=== PATIENT | female | born 1990 | race Caucasian/White ===

== ENCOUNTER 2020-08-01 09:30 | Outpatient (REF) | payer OTHER, SELFPAY ==
[2020-08-02 08:10] LABS: HBsAGNum1 0.16 S/CO (0.00-0.99); HIV AB/AG Nonreactive (Nonreactive); HIV Num 1 0.09 S/CO (0.00-0.99); Hepatitis B Surface Antigen Negative (Negative); ~HepC Num1 0.25 S/CO (0.00-0.79); ~Hepatitis C Antibody Nonreactive (Nonreactive)
[2020-08-02 08:40] LABS: Syphilis Screen Nonreactive (Nonreactive)
[2020-08-02 09:33] LABS: CT PCR NOT DETECTED (Not Detect.); NG PCR NOT DETECTED (Not Detect.)
[2020-08-02 09:54] LABS: BV Int Neg Control Negative (Negative); BV Int Pos Control Positive (Positive)
== END 2020-08-01 09:31 | disposition home or self-care (01) ==
LOC: HO.LAB 09:30
PROVIDERS: PCP Internal Medicine; Referring Provider Internal Medicine; Visit Provider Advanced Practice Midwife
DX: Z01.419 Encounter for gynecological examination (general) (routine) without abnormal findings (principal); Z20.2 Contact with and (suspected) exposure to infections with a predominantly sexual mode of transmission; N83.8 Other noninflammatory disorders of ovary, fallopian tube and broad ligament; I73.00 Raynaud's syndrome without gangrene
CPT/HCPCS: 86780; 86803; 87340; 87389; 87480; 87491; 87510; 87591; 87660; 88142

== ENCOUNTER 2020-08-09 12:55 | Outpatient (REF) | payer OTHER, SELFPAY ==
--- NOTE | 2020-08-09 12:56 | US_ITS ---
EXAMINATION: ULTRASOUND PELVIS CLINICAL INFORMATION: Noninflammatory disorder of the ovary. COMPARISON: None TECHNIQUE: Transabdominal and transvaginal ultrasound of pelvis is performed. FINDINGS: The uterus is anteverted and anteflexed measuring 8.29 cm in length, 4.1 cm in AP and 6.6 cm in transverse dimension. The uterus is heterogeneous with small anechoic cystic areas adjacent to the endometrial canal likely small cyst. Endometrial thickness is 1.32 cm. Right ovary measures 9.29 x 1.68 x 3.15 cm and volume 11.89 mL. Left ovary measures 3.33 x 2.30 x 2.77 cm and volume 11.11 mL. There is no free fluid in the cul-de-sac. US/US transvaginal IMPRESSION: Slightly heterogenous uterus with anechoic cystic areas seen adjacent to the endometrial canal. Likely small cyst. There is no free fluid in the cul-de-sac.
--- NOTE | 2020-08-09 12:56 | US_ITS ---
EXAMINATION: ULTRASOUND PELVIS CLINICAL INFORMATION: Noninflammatory disorder of the ovary. COMPARISON: None TECHNIQUE: Transabdominal and transvaginal ultrasound of pelvis is performed. FINDINGS: The uterus is anteverted and anteflexed measuring 8.29 cm in length, 4.1 cm in AP and 6.6 cm in transverse dimension. The uterus is heterogeneous with small anechoic cystic areas adjacent to the endometrial canal likely small cyst. Endometrial thickness is 1.32 cm. Right ovary measures 9.29 x 1.68 x 3.15 cm and volume 11.89 mL. Left ovary measures 3.33 x 2.30 x 2.77 cm and volume 11.11 mL. There is no free fluid in the cul-de-sac. US/US pelvic complete IMPRESSION: Slightly heterogenous uterus with anechoic cystic areas seen adjacent to the endometrial canal. Likely small cyst. There is no free fluid in the cul-de-sac.
== END 2020-08-09 12:56 | disposition home or self-care (01) ==
LOC: HO.US 12:55
PROVIDERS: PCP Internal Medicine; Visit Provider Advanced Practice Midwife
DX: N83.8 Other noninflammatory disorders of ovary, fallopian tube and broad ligament (principal)
CPT/HCPCS: 76830; 76856

== ENCOUNTER 2020-08-21 13:15 | Outpatient (REF) | payer OTHER, SELFPAY ==
[2020-08-21 13:59] LABS: MANUAL DIFF FLAG NO
[2020-08-21 14:04] LABS: Basophils Percent Auto 0.5 % (0-2); Eosinophils Absolute Auto 0.4 X10*3/uL (0.0-0.4); Eosinophils Percent Auto 5.6 % (0-4); Imm Gran Abs Auto 0.03 X10*3/uL (0.00-0.03); Imm Gran Pct Auto 0.4 % (0.0-0.4); Lymphocytes Absolute Auto 2.3 X10*3/uL (1.2-4.9); Lymphocytes Percent Auto 31.1 % (20-40); Mean Corpuscular HGB Conc 33.3 g/dl (31.0-35.0); Mean Corpuscular Hemoglobin 27.5 pg (27.0-33.0); Mean Corpuscular Volume 82.5 fL (80-98); Mean Platelet Volume 9.5 fL (9.4-12.3); Monocytes Absolute Auto 0.6 X10*3/uL (0.1-1.2); Monocytes Percent Auto 7.4 % (2-11); Neutrophils Absolute Auto 4.1 X10*3/uL (2.0-8.3); Platelet Count 372 X10*3/uL (160-400); Red Blood Count 4.73 X10*6/uL (4.20-5.50); Red Cell Distribution Width 12.4 % (11.0-16.0); White Blood Count 7.5 X10*3/uL (4.8-10.8)
[2020-08-21 14:33] LABS: Alanine Aminotransferase 33 U/L (0-31); Albumin Level 4.5 g/dL (3.5-5.0); Alkaline Phosphatase 93 U/L (39-117); Anion Gap 13 (12-20); Aspartate Amino Transferase 34 U/L (5-31); Bilirubin Total 0.4 mg/dL (0.0-1.0); Blood Urea Nitrogen 10 mg/dL (9-16); Calcium 9.6 mg/dL (8.4-10.2); Carbon Dioxide 25 mmol/L (22-29); Chloride 103 mmol/L (96-108); Cholesterol 179 mg/dL; Estimated Glomerular Filt Rate > 60; Glucose Fasting 94 mg/dL (60-99); HDL Cholesterol 39 mg/dL; LDL Cholesterol Calculated 127 mg/dl; Potassium 4.5 mmol/l (3.3-5.1); Sodium 136 mmol/L (135-145); Total Protein 7.7 g/dL (6.5-8.0); Triglycerides 67 mg/dL
== END 2020-08-21 13:16 | disposition home or self-care (01) ==
LOC: HO.LAB 13:15
PROVIDERS: Visit Provider Internal Medicine
DX: Z00.00 Encounter for general adult medical examination without abnormal findings (principal); E11.9 Type 2 diabetes mellitus without complications
CPT/HCPCS: 36415; 80053; 80061; 85025

== ENCOUNTER → 2020-08-24 09:59 | Outpatient (BNVA) | payer OTHER, SELFPAY | PROVIDERS: Visit Provider Advanced Practice Midwife | DX: N94.6 Dysmenorrhea, unspecified (principal); N83.8 Other noninflammatory disorders of ovary, fallopian tube and broad ligament; Z72.0 Tobacco use | CPT/HCPCS: Q3014 ==

== ENCOUNTER 2020-09-29 02:03 | Emergency (ER) | payer OTHER, SELFPAY ==
[2020-09-29 02:19] VITALS: PULSE 87; RESP 12; TEMP 36.7; BMI 24.0
--- NOTE | 2020-09-29 02:25 | ED_ITS ---
HPI - Female Genitourinary General Chief complaint: Urogenital-Female Stated complaint: ?OVARY PAIN Time Seen by Provider: 09/29/20 02:09 Source: patient Mode of arrival: ambulatory History of Present Illness HPI Narrative: This is a 30-year-old female with worsening right lower quadrant and suprapubic pain over the past 4 days with associated chills and decrease in appetite but denies any urinary pain/burning/frequency, diarrhea and states that the pain does not radiate anywhere and felt as though it started on the left and then moved to the right. Of note, patient is status post appendectomy and conjunction with repair intussusception at 6 months of age. Related Data Home Medications Medication Instructions Recorded Confirmed omeprazole magnesium 20 mg 20 mg PO DAILY 08/09/20 08/09/20 capsule,delayed release Previous Rx's Medication Instructions Recorded metronidazole 500 mg tablet 500 mg PO BID 7 Days #14 tab 08/04/20 Allergies Allergy/AdvReac Type Severity Reaction Status Date / Time No Known Allergies Allergy Verified 08/24/20 10:00 Review of Systems Review of Systems: Pertinent positives and negatives as mentioned in the HPI and 10 point review systems is otherwise negative. [facility] Past Medical History Source: nursing notes reviewed Medical History Elevated C-reactive protein (CRP) Elevated LFTs Raynaud disease Raynaud disease Tobacco use Surgical History No history of previous surgery Family History Family History Maternal Grandmother Diabetes mellitus Stroke Maternal Grandfather Diabetes mellitus Paternal Grandmother Diabetes mellitus Paternal Grandfather Diabetes mellitus Stroke Colon cancer Father No problems noted. Mother No problems noted. Social History Social History Alcohol intake: never Smoking Status: Current every day smoker Tobacco Type: Cigarette Packs Per Day: 1 Use of substances other than those prescribed or required for medical reasons: No Advance Directives: No Physical Exam Vital Signs: Vital Signs: Last Vital Signs Temp 98.0 F 09/29/20 02:19 Pulse 71 09/29/20 04:55 Resp 20 09/29/20 04:55 BP 134/90 H 09/29/20 04:55 Pulse Ox 97 09/29/20 04:55 Body Mass Index 24.0 VITAL SIGNS: Reviewed. GENERAL: Well developed, well nourished, in no acute distress. NOSE: Nares patent bilateral OROPHARYNX: no oral lesions noted, posterior pharynx clear NECK: Supple, no adenopathy LUNGS: Normal breath sounds. No adventitious sounds or accessory muscle use. CARDIOVASCULAR: Regular rate and rhythm without noted murmurs, no JVD or lower extremity edema. ABDOMEN: Soft, tenderness without rebound in the right lower quadrant/suprapubic area, non-distended with bowel sounds. No rigidity. No guarding. No palpable masses or hernias noted MUSCULOSKELETAL: No tenderness, deformities, or effusions noted on gross inspection. EXTREMITIES: No cyanosis, clubbing or edema. SKIN: Inspection of the skin reveals no rashes NEUROLOGIC: Alert and oriented x 4. Course Course Course Narrative: This is a 30-year-old female with history and clinical presentation suggestive of renal colic, ovarian torsion, ectopic . All investigations reviewed and no evidence to suggest renal colic, ectopic p regnancy, ovarian torsion, ruptured cyst, UTI, or appendicitis. All results and findings were discussed with patient at bedside and she was encouraged to follow up with her primary care provider for further investigations to evaluate the possibility of endometriosis. MDM - Female Genitourinary Lab Data Result diagrams: 09/29/20 03:28 09/29/20 03:28 Labs: Lab Results 09/29/20 09/29/20 09/29/20 Range/Units 03:28 03:28 03:28 WBC 8.6 (4.8-10.8) X10*3/uL RBC 4.75 (4.20-5.50) X10*6/uL Hgb 13.1 (12.0-16.0) g/dl Hct 39.2 (37-47) % MCV 82.5 (80-98) fL MCH 27.6 (27.0-33.0) pg MCHC 33.4 (31.0-35.0) g/dl RDW 12.3 (11.0-16.0) % Plt Count 411 H (160-400) X10*3/uL MPV 8.9 L (9.4-12.3) fL Immature Gran % (Auto) 0.1 (0.0-0.4) % Neut % (Auto) 45.1 (45-73) % Lymph % (Auto) 40.5 H (20-40) % [place] % (Auto) 5.1 (2-11) % Eos % (Auto) 8.6 H (0-4) % Baso % (Auto) 0.6 (0-2) % Lymph # (Auto) 3.5 (1.2-4.9) X10*3/uL [place] # (Auto) 0.4 (0.1-1.2) X10*3/uL Eos # (Auto) 0.7 H (0.0-0.4) X10*3/uL Baso # (Auto) 0.1 (0.0-0.2) X10*3/uL Abs Immat Gran (auto) 0.01 (0.00-0.03) X10*3/uL Absolute Neuts (auto) 3.9 (2.0-8.3) X10*3/uL Absolute Nucleated RBC 0.000 (0.0-0.012) X10*3/uL Nucleated RBC % (auto) 0.0 (0.0-0.2) /100WBC Sodium 138 (135-145) mmol/L Potassium 4.4 (3.3-5.1) mmol/l Chloride 102 (96-108) mmol/L Carbon Dioxide 29 (22-29) mmol/L Anion Gap 11 L (12-20) BUN 10 (9-16) mg/dL Creatinine 0.81 (0.5-1.4) mg/dL Estim Creat Clear Calc 86.9 Estimated GFR > 60 Random Glucose 86 (60-115) mg/dL Calcium 9.7 (8.4-10.2) mg/dL Total Bilirubin 0.2 (0.0-1.0) mg/dL AST 28 (5-31) U/L ALT 29 (0-31) U/L Alkaline Phosphatase 104 (39-117) U/L Total Protein 7.8 (6.5-8.0) g/dL Albumin 4.5 (3.5-5.0) g/dL Urine Color STRAW Urine Appearance CLEAR Urine pH 7.0 (5.0-8.0) Ur Specific [place] <= 1.005 (1.005-1.025) Urine Protein NEG (NEG-TRACE) MG/DL Urine Glucose (UA) NEG (NEG) MG/DL Urine Ketones NEG (NEG) MG/DL Urine Blood NEG (NEG) Urine Nitrite NEG (NEG) Ur Leukocyte Esterase NEG (NEG) Urine Test (NEGATIVE) 09/29/20 Range/Units 03:28 WBC (4.8-10.8) X10*3/uL RBC (4.20-5.50) X10*6/uL Hgb (12.0-16.0) g/dl Hct (37-47) % MCV (80-98) fL MCH (27.0-33.0) pg MCHC (31.0-35.0) g/dl RDW (11.0-16.0) % Plt Count (160-400) X10*3/uL MPV (9.4-12.3) fL Immature Gran % (Auto) (0.0-0.4) % Neut % (Auto) (45-73) % Lymph % (Auto) (20-40) % [place] % (Auto) (2-11) % Eos % (Auto) (0-4) % Baso % (Auto) (0-2) % Lymph # (Auto) (1.2-4.9) X10*3/uL [place] # (Auto) (0.1-1.2) X10*3/uL Eos # (Auto) (0.0-0.4) X10*3/uL Baso # (Auto) (0.0-0.2) X10*3/uL Abs Immat Gran (auto) (0.00-0.03) X10*3/uL Absolute Neuts (auto) (2.0-8.3) X10*3/uL Absolute Nucleated RBC (0.0-0.012) X10*3/uL Nucleated RBC % (auto) (0.0-0.2) /100WBC Sodium (135-145) mmol/L Potassium (3.3-5.1) mmol/l Chloride (96-108) mmol/L Carbon Dioxide (22-29) mmol/L Anion Gap (12-20) BUN (9-16) mg/dL Creatinine (0.5-1.4) mg/dL Estim Creat Clear Calc Estimated GFR Random Glucose (60-115) mg/dL Calcium (8.4-10.2) mg/dL Total Bilirubin (0.0-1.0) mg/dL AST (5-31) U/L ALT (0-31) U/L Alkaline Phosphatase (39-117) U/L Total Protein (6.5-8.0) g/dL Albumin (3.5-5.0) g/dL Urine Color Urine Appearance Urine pH (5.0-8.0) Ur Specific [place] (1.005-1.025) Urine Protein (NEG-TRACE) MG/DL Urine Glucose (UA) (NEG) MG/DL Urine Ketones (NEG) MG/DL Urine Blood (NEG) Urine Nitrite (NEG) Ur Leukocyte Esterase (NEG) Urine Test NEGATIVE (NEGATIVE) Discharge Plan Discharge Clinical Impression: Pelvic pain Patient Disposition: Home, Self-Care Instructions: Pelvic Pain in Women (ED) Additional Instructions: 1. Tylenol 1000 mg, orally, every 6 hours as needed for pain control. Do not exceed 4000 mg within 24 hours. 2. Ibuprofen 400 mg, orally with milk or food, every 6 hours as needed for pain control. Take this medication in conjunction with Tylenol for increased symptoms control. 3. Apply heat to the affected area for additional symptom control. 4. Discuss with your primary care provider the possibility of further evaluation by Gynecology for other etiologies of your pain. Prescriptions: No Action metronidazole [Flagyl] 500 mg tablet 500 mg PO BID 7 Days Qty: 14 RF: 0 omeprazole magnesium [Acid Corrugator Machine Operator (omeprazole)] 20 mg capsule,delayed release(DR/EC) 20 mg PO DAILY RF: 0 Referrals: Physician,Unknown [Primary Care Provider] - 2 days (Re-evaluation outpatient management of pelvic pain.)
--- NOTE | 2020-09-29 03:14 | US_ITS ---
EXAMINATION: TRANSVAGINAL AND TRANSABDOMINAL ULTRASOUND OF THE PELVIS CLINICAL INFORMATION: Right pelvic pain. Rule out torsion. COMPARISON: 08/09/2020 TECHNIQUE: Real-time scanning of the pelvis is acquired via transabdominal and transvaginal approach. Transvaginal images were obtained for more detailed evaluation of the ovaries. Spectral Doppler and color Doppler assessment was performed of both ovaries for assessment of arterial and venous flow. FINDINGS: UTERUS: Anteverted. Normal in size and appearance, measuring 7.2 x 4.2 x 5.4 cm (SAG x AP x TRANS). Trilaminar endometrium is noted. Maximum Endometrial Thickness: 0.6 cm. Myometrium: Normal. OVARIES AND ADNEXA: Ovaries are normal in size and appearance. No adnexal mass. Arterial and venous waveforms are present in both ovaries on spectral Doppler evaluation. Right Ovary: 3.6 x 1.9 x 2.8 cm, volume 10 mL. Left Ovary: 3.9 x 2.1 x 2.5 cm, volume 10.7 mL. A 1.9 cm dominant follicle or cyst is present at the left ovary. FREE FLUID: Trace intraperitoneal free fluid. US/US pelvic ovarian doppler IMPRESSION: No acute intrapelvic abnormalities are identified. No sonographic findings of active ovarian torsion.
--- NOTE | 2020-09-29 03:14 | US_ITS ---
EXAMINATION: TRANSVAGINAL AND TRANSABDOMINAL ULTRASOUND OF THE PELVIS CLINICAL INFORMATION: Right pelvic pain. Rule out torsion. COMPARISON: 08/09/2020 TECHNIQUE: Real-time scanning of the pelvis is acquired via transabdominal and transvaginal approach. Transvaginal images were obtained for more detailed evaluation of the ovaries. Spectral Doppler and color Doppler assessment was performed of both ovaries for assessment of arterial and venous flow. FINDINGS: UTERUS: Anteverted. Normal in size and appearance, measuring 7.2 x 4.2 x 5.4 cm (SAG x AP x TRANS). Trilaminar endometrium is noted. Maximum Endometrial Thickness: 0.6 cm. Myometrium: Normal. OVARIES AND ADNEXA: Ovaries are normal in size and appearance. No adnexal mass. Arterial and venous waveforms are present in both ovaries on spectral Doppler evaluation. Right Ovary: 3.6 x 1.9 x 2.8 cm, volume 10 mL. Left Ovary: 3.9 x 2.1 x 2.5 cm, volume 10.7 mL. A 1.9 cm dominant follicle or cyst is present at the left ovary. FREE FLUID: Trace intraperitoneal free fluid. US/US transvaginal IMPRESSION: No acute intrapelvic abnormalities are identified. No sonographic findings of active ovarian torsion.
[2020-09-29 03:21] VITALS: BP 145/89; PULSE 73; RESP 18
--- NOTE | 2020-09-29 03:29 | US_ITS ---
EXAMINATION: TRANSVAGINAL AND TRANSABDOMINAL ULTRASOUND OF THE PELVIS CLINICAL INFORMATION: Right pelvic pain. Rule out torsion. COMPARISON: 08/09/2020 TECHNIQUE: Real-time scanning of the pelvis is acquired via transabdominal and transvaginal approach. Transvaginal images were obtained for more detailed evaluation of the ovaries. Spectral Doppler and color Doppler assessment was performed of both ovaries for assessment of arterial and venous flow. FINDINGS: UTERUS: Anteverted. Normal in size and appearance, measuring 7.2 x 4.2 x 5.4 cm (SAG x AP x TRANS). Trilaminar endometrium is noted. Maximum Endometrial Thickness: 0.6 cm. Myometrium: Normal. OVARIES AND ADNEXA: Ovaries are normal in size and appearance. No adnexal mass. Arterial and venous waveforms are present in both ovaries on spectral Doppler evaluation. Right Ovary: 3.6 x 1.9 x 2.8 cm, volume 10 mL. Left Ovary: 3.9 x 2.1 x 2.5 cm, volume 10.7 mL. A 1.9 cm dominant follicle or cyst is present at the left ovary. FREE FLUID: Trace intraperitoneal free fluid. US/US pelvic complete IMPRESSION: No acute intrapelvic abnormalities are identified. No sonographic findings of active ovarian torsion.
[2020-09-29 03:39] LABS: MANUAL DIFF FLAG NO
[2020-09-29] MEDS: Acetaminophen 325 MG TABLET 975 MG PO (03:39)
[2020-09-29] MEDS: Ketorolac Tromethamine 15 MG/ML VIAL IM (03:39)
[2020-09-29 03:41] LABS: Basophils Absolute Auto 0.1 X10*3/uL (0.0-0.2); Basophils Percent Auto 0.6 % (0-2); Eosinophils Absolute Auto 0.7 X10*3/uL (0.0-0.4); Eosinophils Percent Auto 8.6 % (0-4); Hematocrit 39.2 % (37-47); Hemoglobin 13.1 g/dl (12.0-16.0); Imm Gran Abs Auto 0.01 X10*3/uL (0.00-0.03); Imm Gran Pct Auto 0.1 % (0.0-0.4); Lymphocytes Absolute Auto 3.5 X10*3/uL (1.2-4.9); Lymphocytes Percent Auto 40.5 % (20-40); Mean Corpuscular HGB Conc 33.4 g/dl (31.0-35.0); Mean Corpuscular Hemoglobin 27.6 pg (27.0-33.0); Mean Corpuscular Volume 82.5 fL (80-98); Mean Platelet Volume 8.9 fL (9.4-12.3); Monocytes Absolute Auto 0.4 X10*3/uL (0.1-1.2); Monocytes Percent Auto 5.1 % (2-11); Neutrophils Absolute Auto 3.9 X10*3/uL (2.0-8.3); Neutrophils Percent Auto 45.1 % (45-73); Platelet Count 411 X10*3/uL (160-400); Red Blood Count 4.75 X10*6/uL (4.20-5.50); Red Cell Distribution Width 12.3 % (11.0-16.0); White Blood Count 8.6 X10*3/uL (4.8-10.8)
[2020-09-29 03:42] LABS: Glucose Urine UA NEG (NEG); Leukocyte Esterase Urine NEG (NEG); Nitrite Urine NEG (NEG); Specific Gravity - Urine <= 1.005 (1.005-1.025); Urine Blood NEG (NEG); Urine Ketones NEG (NEG); Urine Protein NEG (NEG-TRACE)
--- NOTE | 2020-09-29 03:43 | PC.NURSE ---
pt taken via wheelchair to [facility] sound
[2020-09-29 03:44] LABS: Appearance Urine CLEAR; Color Urine STRAW; UACC Culture Trigger NO
[2020-09-29 04:13] LABS: Alanine Aminotransferase 29 U/L (0-31); Albumin Level 4.5 g/dL (3.5-5.0); Alkaline Phosphatase 104 U/L (39-117); Anion Gap 11 (12-20); Aspartate Amino Transferase 28 U/L (5-31); Bilirubin Total 0.2 mg/dL (0.0-1.0); Blood Urea Nitrogen 10 mg/dL (9-16); Calcium 9.7 mg/dL (8.4-10.2); Carbon Dioxide 29 mmol/L (22-29); Chloride 102 mmol/L (96-108); Creatinine Clr Calc Pharmacy 86.9; Estimated Glomerular Filt Rate > 60; Glucose Random 86 mg/dL (60-115); Potassium 4.4 mmol/l (3.3-5.1); Sodium 138 mmol/L (135-145); Total Protein 7.8 g/dL (6.5-8.0)
--- NOTE | 2020-09-29 04:36 | CT_ITS ---
EXAMINATION: CT ABDOMEN AND PELVIS WITH CONTRAST CLINICAL INFORMATION: RLQ Pain COMPARISON: Ultrasound from the same day. TECHNIQUE: Multidetector volumetric images were obtained from the superior aspect of the liver through the pubic symphysis following administration 80 mL of Omnipaque 350 intravenous contrast. Sagittal and coronal reformatted images were obtained on the technologist's workstation. Oral contrast: No This CT examination was performed using dose optimization techniques as appropriate, variously including the following: *Automated exposure control *Adjustment of mA and/or kV according to patient size (this includes techniques or standardized protocols for targeted exams where dose is matched to indication/reason for exam; i.e. extremities or head) *Use of iterative reconstruction technique DLP: 506 mGy-cm FINDINGS: LUNG BASES: The visualized lung bases are unremarkable. LIVER, GALLBLADDER, AND BILIARY TREE: The liver is normal in size, shape, and attenuation. No focal hepatic lesion or biliary ductal dilatation is present. The gallbladder is unremarkable with no evidence of radiopaque gallstones, gallbladder wall thickening, or obvious pericholecystic inflammatory changes. PANCREAS: Unremarkable. SPLEEN: A a punctate calcified splenic granulomas present. Spleen is otherwise normal in appearance. ADRENAL GLANDS: Unremarkable. KIDNEYS AND URETERS: The kidneys are normal in size, shape, and attenuation. No hydronephrosis, hydroureter, or calculi seen. No perinephric stranding. BLADDER: Unremarkable. GASTROINTESTINAL TRACT: Stomach, small bowel, and colon are normal in caliber. No bowel wall thickening or surrounding inflammatory changes. Appendix is normal. No intraperitoneal free fluid or free air. A moderate volume of stool is present within the right hemicolon. ABDOMINAL WALL: No significant hernia is appreciated. LYMPH NODES: Normal. VASCULAR: Unremarkable. PELVIC VISCERA: The uterus and adnexa are unremarkable. OSSEOUS STRUCTURES: Mild degenerative spondylosis at L5-S1. No acute osseous findings. CT/CT abdomen pelvis w con IMPRESSION: No acute intra-abdominal or intrapelvic abnormalities. Normal appendix. Moderate stool volume.
[2020-09-29 04:47] LABS: UPreg QC Valid YES; Urine Pregnancy NEGATIVE (NEGATIVE)
[2020-09-29 04:55] VITALS: BP 134/90; PULSE 71; PULSE 72; RESP 20; O2SAT 97; O2SAT 98
--- NOTE | 2020-09-29 04:57 | PC.NURSE ---
pt taken to ct.
[2020-09-29] MEDS: iohexoL 350 MG/ML 100 ML INFUS..BTL 85 ML IV (05:21)
== END 2020-09-29 06:10 | disposition home or self-care (01) ==
PROVIDERS: Emergency Provider Student in an Organized Health Care Education/Training Program
DX: R10.2 Pelvic and perineal pain (principal); I73.00 Raynaud's syndrome without gangrene; F17.210 Nicotine dependence, cigarettes, uncomplicated
CPT/HCPCS: 36415; 74177; 76830; 76856; 80053; 81003; 81025; 85025; 93975; 96372; 99284; J1885; Q9967

== ENCOUNTER 2020-10-03 15:20 | Emergency (ER) | payer OTHER, SELFPAY ==
[2020-10-03 17:02] VITALS: BP 139/91; PULSE 79; RESP 20; TEMP 36.9; BMI 22.3
--- NOTE | 2020-10-03 17:03 | ED.GENADULT ---
HPI - General Adult General Chief complaint: Abdominal Pain <Hallie Jha NP - Last Filed: 10/03/20 17:08> Stated complaint: abdominal pain,numbness <Hallie Jha NP - Last Filed: 10/03/20 17:08> Time Seen by Provider: 10/03/20 17:02 <Hallie Jha NP - Last Filed: 10/03/20 17:08> Source: patient <Corina Velázquez MD - Last Filed: 10/04/20 01:24> Mode of arrival: ambulatory <Corina Velázquez MD - Last Filed: 10/04/20 01:24> History of Present Illness HPI narrative: This is a 30-year-old female who presents with for 2 days, radiating into the back, with nausea but no vomiting and has a history of gallstones as per patient and she states that it feels similar. Otherwise, she denies any fevers, chills, urinary symptoms. Note, patient was seen on 09/29 and at that time underwent an abdomen pelvis CT scan as well as a pelvic ultrasound which were negative. <Corina Velázquez MD - Last Filed: 10/04/20 01:24> Related Data Home medications: Home Medications Medication Instructions Recorded Confirmed omeprazole magnesium 20 mg 20 mg PO DAILY 08/09/20 08/09/20 capsule,delayed release Previous Rx's Medication Instructions Recorded metronidazole 500 mg tablet 500 mg PO BID 7 Days #14 tab 08/04/20 dicyclomine 10 mg PO TID PRN #6 cap 10/04/20 <Hallie Jha NP - Last Filed: 10/03/20 17:08> Allergies/adverse reactions: Allergies Allergy/AdvReac Type Severity Reaction Status Date / Time No Known Allergies Allergy Verified 08/24/20 10:00 <Hallie Jha NP - Last Filed: 10/03/20 17:08> Review of Systems Review of Systems: Pertinent positives and negatives as stated in the HPI and 10 point review of systems is otherwise negative. <Corina Velázquez MD - Last Filed: 10/04/20 01:24> PMFSH Past Medical History Source: nursing notes reviewed <Corina Velázquez MD - Last Filed: 10/04/20 01:24> Medical History: Medical History Elevated C-reactive protein (CRP) Elevated LFTs Raynaud disease Raynaud disease Tobacco use <Hallie Jha NP - Last Filed: 10/03/20 17:08> Surgical History: Surgical History No history of previous surgery <Hallie Jha NP - Last Filed: 10/03/20 17:08> Family History Family History: Family History Maternal Grandmother Diabetes mellitus Stroke Maternal Grandfather Diabetes mellitus Paternal Grandmother Diabetes mellitus Paternal Grandfather Diabetes mellitus Stroke Colon cancer Father No problems noted. Mother No problems noted. <Hallie Jha NP - Last Filed: 10/03/20 17:08> Social History Social History: Social History Alcohol intake: never Smoking Status: Light tobacco smoker Tobacco Type: Cigarette Packs Per Day: 1 Use of substances other than those prescribed or required for medical reasons: No Advance Directives: No <Hallie Jha NP - Last Filed: 10/03/20 17:08> Physical Exam Vital Signs: Vital Signs: Last Vital Signs Temp 97.6 F 10/04/20 00:14 Pulse 75 10/04/20 00:14 Resp 17 10/04/20 00:14 BP 117/75 10/04/20 00:14 Pulse Ox 94 10/04/20 00:14 Body Mass Index 22.3 <Hallie Jha NP - Last Filed: 10/03/20 17:08> Vital Signs: Last Vital Signs Temp 97.6 F 10/04/20 00:14 Pulse 75 10/04/20 00:14 Resp 17 10/04/20 00:14 BP 117/75 10/04/20 00:14 Pulse Ox 94 10/04/20 00:14 Body Mass Index 22.3 <Corina Velázquez MD - Last Filed: 10/04/20 01:24> VITAL SIGNS: Reviewed. GENERAL: Well developed, well nourished, in no acute distress. HEAD: Normocephalic/atraumatic, EYES: PERRLA, EOMI EARS: Ext canals without abnormality NOSE: Nares patent bilateral OROPHARYNX: no oral lesions noted, posterior pharynx clear NECK: Supple, no adenopathy LUNGS: Normal breath sounds. SpO2<94> CARDIOVASCULAR: Regular rate and rhythm without noted murmurs ABDOMEN: Soft, mild tenderness at right side of abdomen without rebound, non-distended with bowel sounds. NEUROLOGIC: Alert and oriented x 4. <Corina Velázquez MD - Last Filed: 10/04/20 01:24> Course Course Course Narrative: 1700-This is a rapid medical exam. 30 yo female here with RUQ pain x 2 days, radiating to the back, with nausea, no vomiting. H/o gallstones and feels similar. No fevers/chills, urinary symptoms. Will check labs, UA, ur , abdomen US to r/o acute corey. Deferred HPI, ROS, and PE to primary provider. <Hallie Jha NP - Last Filed: 10/03/20 17:08> This is a 30-year-old female with history and clinical presentation consistent with repeat presentation for abdominal pelvic complaints with negative workup after review of all investigations. As patient does have a history of intestinal repair status post intussusception as a 6-month-old child there is a possibility of a combination of stool consistency and narrowing of the bowel that may be contributing to patient's symptoms, although this has not been identified on the CT scan that was obtained 09/29. In addition, it is also possible that this is an IBS presentation. Both of these were discussed with the patient as well as the results and she was encouraged to expedite her search of a primary care provider and she will be provided with a referral to GI for further assessment. She received Bentyl here in the emergency department with good improvement of her abdominal symptoms. She will be discharged in stable condition. <Corina Velázquez MD - Last Filed: 10/04/20 01:24> Medical Decision Making Lab Data Result diagrams: : 10/03/20 18:24 10/03/20 18:24 <Hallie Jha NP - Last Filed: 10/03/20 17:08> Labs: Lab Results 01/19/21 01/19/21 01/20/21 Range/Units 18:24 18:24 00:30 WBC 8.7 (4.8-10.8) X10*3/uL RBC 4.72 (4.20-5.50) X10*6/uL Hgb 13.0 (12.0-16.0) g/dl Hct 38.5 (37-47) % MCV 81.6 (80-98) fL MCH 27.5 (27.0-33.0) pg MCHC 33.8 (31.0-35.0) g/dl RDW 12.1 (11.0-16.0) % Plt Count 383 (160-400) X10*3/uL MPV 9.0 L (9.4-12.3) fL Immature Gran % (Auto) 0.2 (0.0-0.4) % Neut % (Auto) 64.8 (45-73) % Lymph % (Auto) 25.8 (20-40) % [place] % (Auto) 5.7 (2-11) % Eos % (Auto) 3.2 (0-4) % Baso % (Auto) 0.3 (0-2) % Lymph # (Auto) 2.3 (1.2-4.9) X10*3/uL [place] # (Auto) 0.5 (0.1-1.2) X10*3/uL Eos # (Auto) 0.3 (0.0-0.4) X10*3/uL Baso # (Auto) 0.0 (0.0-0.2) X10*3/uL Abs Immat Gran (auto) 0.02 (0.00-0.03) X10*3/uL Absolute Neuts (auto) 5.6 (2.0-8.3) X10*3/uL Absolute Nucleated RBC 0.000 (0.0-0.012) X10*3/uL Nucleated RBC % (auto) 0.0 (0.0-0.2) /100WBC Sodium 136 (135-145) mmol/L Potassium 4.0 (3.3-5.1) mmol/l Chloride 101 (96-108) mmol/L Carbon Dioxide 26 (22-29) mmol/L Anion Gap 13 (12-20) BUN 11 (9-16) mg/dL Creatinine 0.82 (0.5-1.4) mg/dL Estim Creat Clear Calc 85.8 Estimated GFR > 60 Random Glucose 92 (60-115) mg/dL Calcium 9.9 (8.4-10.2) mg/dL Total Bilirubin 0.5 (0.0-1.0) mg/dL Direct Bilirubin 0.2 (0.0-0.5) mg/dL AST 49 H D (5-31) U/L ALT 68 H (0-31) U/L Alkaline Phosphatase 101 (39-117) U/L Total Protein 7.9 (6.5-8.0) g/dL Albumin 4.6 (3.5-5.0) g/dL Urine Color DARK YELLOW Urine Appearance CLEAR Urine pH 6.0 (5.0-8.0) Ur Specific [place] >= 1.030 H (1.005-1.025) Urine Protein NEG (NEG-TRACE) MG/DL Urine Glucose (UA) NEG (NEG) MG/DL Urine Ketones 15 (NEG) MG/DL Urine Blood NEG (NEG) Urine Nitrite NEG (NEG) Ur Leukocyte Esterase NEG (NEG) Urine Test NEGATIVE (NEGATIVE) <Hallie Jha, PATIENT TRANSPORTER - Last Filed: 10/03/20 17:08> Lab Results 10/03/20 10/03/20 10/04/20 Range/Units 18:24 18:24 00:30 WBC 8.7 (4.8-10.8) X10*3/uL RBC 4.72 (4.20-5.50) X10*6/uL Hgb 13.0 (12.0-16.0) g/dl Hct 38.5 (37-47) % MCV 81.6 (80-98) fL MCH 27.5 (27.0-33.0) pg MCHC 33.8 (31.0-35.0) g/dl RDW 12.1 (11.0-16.0) % Plt Count 383 (160-400) X10*3/uL MPV 9.0 L (9.4-12.3) fL Immature Gran % (Auto) 0.2 (0.0-0.4) % Neut % (Auto) 64.8 (45-73) % Lymph % (Auto) 25.8 (20-40) % [place] % (Auto) 5.7 (2-11) % Eos % (Auto) 3.2 (0-4) % Baso % (Auto) 0.3 (0-2) % Lymph # (Auto) 2.3 (1.2-4.9) X10*3/uL [place] # (Auto) 0.5 (0.1-1.2) X10*3/uL Eos # (Auto) 0.3 (0.0-0.4) X10*3/uL Baso # (Auto) 0.0 (0.0-0.2) X10*3/uL Abs Immat Gran (auto) 0.02 (0.00-0.03) X10*3/uL Absolute Neuts (auto) 5.6 (2.0-8.3) X10*3/uL Absolute Nucleated RBC 0.000 (0.0-0.012) X10*3/uL Nucleated RBC % (auto) 0.0 (0.0-0.2) /100WBC Sodium 136 (135-145) mmol/L Potassium 4.0 (3.3-5.1) mmol/l Chloride 101 (96-108) mmol/L Carbon Dioxide 26 (22-29) mmol/L Anion Gap 13 (12-20) BUN 11 (9-16) mg/dL Creatinine 0.82 (0.5-1.4) mg/dL Estim Creat Clear Calc 85.8 Estimated GFR > 60 Random Glucose 92 (60-115) mg/dL Calcium 9.9 (8.4-10.2) mg/dL Total Bilirubin 0.5 (0.0-1.0) mg/dL Direct Bilirubin 0.2 (0.0-0.5) mg/dL AST 49 H D (5-31) U/L ALT 68 H (0-31) U/L Alkaline Phosphatase 101 (39-117) U/L Total Protein 7.9 (6.5-8.0) g/dL Albumin 4.6 (3.5-5.0) g/dL Urine Color DARK YELLOW Urine Appearance CLEAR Urine pH 6.0 (5.0-8.0) Ur Specific [place] >= 1.030 H (1.005-1.025) Urine Protein NEG (NEG-TRACE) MG/DL Urine Glucose (UA) NEG (NEG) MG/DL Urine Ketones 15 (NEG) MG/DL Urine Blood NEG (NEG) Urine Nitrite NEG (NEG) Ur Leukocyte Esterase NEG (NEG) Urine Test NEGATIVE (NEGATIVE) <Corina Velázquez MD - Last Filed: 10/04/20 01:24> Discharge Plan Discharge Clinical Impression: Abdominal pain Qualifiers: Abdominal location: right upper quadrant Qualified Code(s): R10.11 - Right upper quadrant pain <Hallie Jha NP - Last Filed: 10/03/20 17:08> Patient Disposition: Home, Self-Care <Hallie Jha NP - Last Filed: 10/03/20 17:08> Instructions: Abdominal Pain (ED) <Hallie Jha NP - Last Filed: 10/03/20 17:08> Additional Instructions: 1. Recommend MiraLax, available [id number], Daily, as directed on the outside packaging to promote soft stools. 2. Increase fluid hydration especially with water. 3. Please follow-up with your primary care provider, and you have been provided with contact information for Gastroenterology for further evaluation of your abdominal symptoms. Do not hesitate to return to the emergency department should you experience any worsening of your pain and symptoms in combination with fevers/chills that do not improve with [id number] Tylenol/ibuprofen. <Hallie Jha NP - Last Filed: 10/03/20 17:08> Prescriptions: New dicyclomine 10 mg capsule 10 mg PO TID PRN (Reason: pain (scale score 4-6)) Qty: 6 RF: 0 No Action metronidazole [Flagyl] 500 mg tablet 500 mg PO BID 7 Days Qty: 14 RF: 0 omeprazole magnesium [[employer] (omeprazole)] 20 mg capsule,delayed release(DR/EC) 20 mg PO DAILY RF: 0 <Hallie Jha NP - Last Filed: 10/03/20 17:08> Referrals: Abhinav Cortes MD [Physician] - 2 days (Please evaluate this patient for abdominal discomfort that has been extensively worked up in the emergency department, and she has a history of intestinal repair for intussusception at 6-month-old ?Stricture although this was certainly not identified on CT scan. Thank you) Physician,Unknown [Primary Care Provider] - 2 days <Hallie Jha NP - Last Filed: 10/03/20 17:08>
--- NOTE | 2020-10-03 17:04 | US_ITS ---
EXAMINATION: US ABDOMEN LIMITED, ultrasound gallbladder only CLINICAL INFORMATION: Right upper quadrant abdominal pain. Concern for acute cholecystitis. COMPARISON: Ultrasound of abdomen 05/04/2019. CT abdomen pelvis 09/29/2020 TECHNIQUE: Real-time imaging of the right upper quadrant abdominal viscera. Code Doppler exam used. FINDINGS: Gallbladder: No gallbladder wall thickening or pericholecystic fluid. No gallstone. No dilatation of the bile ducts. CBD measures 0.6 cm. US/US abdomen limited IMPRESSION: Normal ultrasound of gallbladder.
[2020-10-03 18:29] LABS: MANUAL DIFF FLAG NO
[2020-10-03 18:35] LABS: Basophils Percent Auto 0.3 % (0-2); Eosinophils Absolute Auto 0.3 X10*3/uL (0.0-0.4); Eosinophils Percent Auto 3.2 % (0-4); Hematocrit 38.5 % (37-47); Imm Gran Abs Auto 0.02 X10*3/uL (0.00-0.03); Imm Gran Pct Auto 0.2 % (0.0-0.4); Lymphocytes Absolute Auto 2.3 X10*3/uL (1.2-4.9); Lymphocytes Percent Auto 25.8 % (20-40); Mean Corpuscular HGB Conc 33.8 g/dl (31.0-35.0); Mean Corpuscular Hemoglobin 27.5 pg (27.0-33.0); Mean Corpuscular Volume 81.6 fL (80-98); Monocytes Absolute Auto 0.5 X10*3/uL (0.1-1.2); Monocytes Percent Auto 5.7 % (2-11); Neutrophils Absolute Auto 5.6 X10*3/uL (2.0-8.3); Neutrophils Percent Auto 64.8 % (45-73); Platelet Count 383 X10*3/uL (160-400); Red Blood Count 4.72 X10*6/uL (4.20-5.50); Red Cell Distribution Width 12.1 % (11.0-16.0); White Blood Count 8.7 X10*3/uL (4.8-10.8)
[2020-10-03 18:53] LABS: Alanine Aminotransferase 68 U/L (0-31); Albumin Level 4.6 g/dL (3.5-5.0); Alkaline Phosphatase 101 U/L (39-117); Anion Gap 13 (12-20); Aspartate Amino Transferase 49 U/L (5-31); Bilirubin Direct 0.2 mg/dL (0.0-0.5); Bilirubin Total 0.5 mg/dL (0.0-1.0); Blood Urea Nitrogen 11 mg/dL (9-16); Calcium 9.9 mg/dL (8.4-10.2); Carbon Dioxide 26 mmol/L (22-29); Chloride 101 mmol/L (96-108); Creatinine Clr Calc Pharmacy 85.8; Estimated Glomerular Filt Rate > 60; Glucose Random 92 mg/dL (60-115); Sodium 136 mmol/L (135-145); Total Protein 7.9 g/dL (6.5-8.0)
[2020-10-04 00:14] VITALS: BP 117/75; PULSE 75; RESP 17; TEMP 36.4; O2SAT 94
[2020-10-04 00:36] LABS: Glucose Urine UA NEG (NEG); Leukocyte Esterase Urine NEG (NEG); Nitrite Urine NEG (NEG); Specific Gravity - Urine >= 1.030 (1.005-1.025); Urine Blood NEG (NEG); Urine Ketones 15 MG/DL (NEG); Urine Protein NEG (NEG-TRACE)
[2020-10-04 00:37] LABS: Appearance Urine CLEAR; Color Urine DARK YELLOW; UACC Culture Trigger NO
[2020-10-04 00:38] LABS: UPreg QC Valid YES; Urine Pregnancy NEGATIVE (NEGATIVE)
--- NOTE | 2020-10-04 00:44 | PC.NURSE ---
PT STATES LAST BM THIS AM SMALL HARD STOOLS. ABD + BS X 4.
[2020-10-04] MEDS: Dicyclomine HCl 10 MG CAPSULE PO (01:32)
== END 2020-10-04 01:36 | disposition home or self-care (01) ==
PROVIDERS: Nurse Practitioner Family; Emergency Provider Student in an Organized Health Care Education/Training Program
DX: R10.11 Right upper quadrant pain (principal); M54.5 Low back pain; R11.0 Nausea; Z79.899 Other long term (current) drug therapy; F17.210 Nicotine dependence, cigarettes, uncomplicated; Z71.6 Tobacco abuse counseling
CPT/HCPCS: 36415; 76705; 80048; 80076; 81003; 81025; 85025; 99284

== ENCOUNTER → 2020-10-17 15:00 | Outpatient (BNVA) | payer OTHER, SELFPAY | PROVIDERS: Visit Provider Physician Assistant | DX: Z13.89 Encounter for screening for other disorder (principal) | CPT/HCPCS: Q3014 ==

== ENCOUNTER 2020-11-23 11:17 | Outpatient (REF) | payer OTHER, SELFPAY ==
[2020-11-23 13:04] LABS: MANUAL DIFF FLAG NO
[2020-11-23 13:08] LABS: Basophils Absolute Auto 0.1 X10*3/uL (0.0-0.2); Basophils Percent Auto 0.5 % (0-2); Eosinophils Percent Auto 9.3 % (0-4); Hematocrit 35.9 % (37-47); Hemoglobin 11.8 g/dl (12.0-16.0); Imm Gran Abs Auto 0.02 X10*3/uL (0.00-0.03); Imm Gran Pct Auto 0.2 % (0.0-0.4); Lymphocytes Absolute Auto 1.9 X10*3/uL (1.2-4.9); Lymphocytes Percent Auto 18.2 % (20-40); Mean Corpuscular HGB Conc 32.9 g/dl (31.0-35.0); Mean Corpuscular Hemoglobin 27.7 pg (27.0-33.0); Mean Corpuscular Volume 84.3 fL (80-98); Mean Platelet Volume 8.8 fL (9.4-12.3); Monocytes Absolute Auto 0.5 X10*3/uL (0.1-1.2); Monocytes Percent Auto 4.6 % (2-11); Neutrophils Absolute Auto 7.2 X10*3/uL (2.0-8.3); Neutrophils Percent Auto 67.2 % (45-73); Platelet Count 348 X10*3/uL (160-400); Red Blood Count 4.26 X10*6/uL (4.20-5.50); Red Cell Distribution Width 13.7 % (11.0-16.0); White Blood Count 10.7 X10*3/uL (4.8-10.8)
[2020-11-23 13:36] LABS: Alanine Aminotransferase 150 U/L (0-31); Albumin Level 4.1 g/dL (3.5-5.0); Alkaline Phosphatase 148 U/L (39-117); Anion Gap 9 (12-20); Aspartate Amino Transferase 84 U/L (5-31); Bilirubin Total 0.4 mg/dL (0.0-1.0); Blood Urea Nitrogen 12 mg/dL (9-16); C Reactive Protein 0.41 mg/dL (< or = 0.50); Calcium 9.4 mg/dL (8.4-10.2); Carbon Dioxide 30 mmol/L (22-29); Chloride 103 mmol/L (96-108); Estimated Glomerular Filt Rate > 60; Glucose Random 98 mg/dL (60-115); Potassium 4.2 mmol/L (3.3-5.1); Rheumatoid Factor < 15.0 IU/mL (<15.0); Sodium 138 mmol/L (135-145); Total Protein 7.1 g/dL (6.5-8.0)
[2020-11-23 13:55] LABS: Erythrocyte Sedimentation Rate 12 MM/HR (0-20)
[2020-11-24 11:56] LABS: Anti-Centromere B Antibodies >8.0 POS AI (<1.0 NEG); Antibody to SS-A Antigen <1.0 NEG AI (<1.0 NEG); Antibody to SS-B Antigen <1.0 NEG AI (<1.0 NEG); Scleroderma 70 Antibody <1.0 NEG AI (<1.0 NEG)
[2020-11-27 13:01] LABS: Cyclic Citrullinated Peptide <16 UNITS
[2020-11-27 13:47] LABS: PTT (LAC) Screen 29 sec (< OR = 40)
[2020-11-27 19:36] LABS: ANA Titer 2 1:40 titer; Anti Nuclear Antibody Pattern Nuclear, Centromere; Anti Nuclear Antibody Screen POSITIVE (NEGATIVE)
[2020-11-28 21:27] LABS: Beta-2 Microglobulin, Serum 2.12 mg/L (< OR = 2.51)
[2020-11-28 23:51] LABS: Cardiolipin IgG Ab <14 GPL; Cardiolipin IgM Ab 17 MPL
== END 2020-11-23 11:18 | disposition home or self-care (01) ==
LOC: HO.LAB 11:17
PROVIDERS: Visit Provider Student in an Organized Health Care Education/Training Program
DX: I73.00 Raynaud's syndrome without gangrene (principal); Z79.899 Other long term (current) drug therapy
CPT/HCPCS: 36415; 80053; 82232; 85025; 85597; 85613; 85652; 85730; 86038; 86039; 86140; 86147; 86200; 86235; 86431; 99202

== ENCOUNTER 2020-12-04 15:26 | Outpatient (REF) | payer OTHER, SELFPAY ==
--- NOTE | ~2020-12-04 | XR_ITS ---
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 FINDINGS: Right hand: There is no visible fracture, dislocation or subluxation. The PIP and DIP joints are normal. The soft tissues are normal. Left hand: There is no visible fracture or dislocation or subluxation. The PIP and DIP joints are normal. The soft tissues are normal. XR/XR hand RT min 3V IMPRESSION: Unremarkable bilateral hand exam.
--- NOTE | ~2020-12-04 | XR_ITS ---
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 FINDINGS: Right hand: There is no visible fracture, dislocation or subluxation. The PIP and DIP joints are normal. The soft tissues are normal. Left hand: There is no visible fracture or dislocation or subluxation. The PIP and DIP joints are normal. The soft tissues are normal. XR/XR hand LT min 3V IMPRESSION: Unremarkable bilateral hand exam.
[2020-12-04 16:17] LABS: Glucose Urine UA NEG (NEG); Leukocyte Esterase Urine NEG (NEG); Nitrite Urine NEG (NEG); Specific Gravity - Urine 1.025 (1.005-1.025); Urine Blood NEG (NEG); Urine Ketones NEG (NEG); Urine Protein NEG (NEG-TRACE)
[2020-12-04 16:28] LABS: Appearance Urine CLEAR; Color Urine YELLOW
[2020-12-04 16:41] LABS: Alanine Aminotransferase 84 U/L (0-31); Alkaline Phosphatase 132 U/L (39-117); Anion Gap 12 (12-20); Aspartate Amino Transferase 47 U/L (5-31); Bilirubin Total 0.2 mg/dL (0.0-1.0); Blood Urea Nitrogen 14 mg/dL (9-16); Calcium 9.2 mg/dL (8.4-10.2); Carbon Dioxide 25 mmol/L (22-29); Chloride 104 mmol/L (96-108); Estimated Glomerular Filt Rate > 60; Glucose Random 77 mg/dL (60-115); Potassium 4.7 mmol/L (3.3-5.1); Sodium 136 mmol/L (135-145); Total Protein 6.9 g/dL (6.5-8.0)
[2020-12-04 17:04] LABS: RBC Urine 0 /HPF (0); Squamous Epithelial Cell Urine TRACE /LPF; WBC Urine 0 /HPF (0-4)
[2020-12-06 13:01] LABS: Anti DNA DS Antibody 2 IU/mL; Complement C3 114 mg/dL (83-193); SM/Ribonucleoprotein Ab <1.0 NEG AI (<1.0 NEG); Smith Protein <1.0 NEG AI (<1.0 NEG)
== END 2020-12-04 15:27 | disposition home or self-care (01) ==
LOC: HO.LAB 15:26
PROVIDERS: Visit Provider Student in an Organized Health Care Education/Training Program
DX: R74.8 Abnormal levels of other serum enzymes (principal); R76.8 Other specified abnormal immunological findings in serum; I73.00 Raynaud's syndrome without gangrene
CPT/HCPCS: 36415; 73130; 80053; 81001; 86160; 86225; 86235

== ENCOUNTER → 2020-12-07 13:51 | Outpatient (BNVA) | payer OTHER, SELFPAY | PROVIDERS: PCP Internal Medicine; Visit Provider Physician Assistant | DX: R74.8 Abnormal levels of other serum enzymes (principal); K59.09 Other constipation | CPT/HCPCS: 99212 ==

== ENCOUNTER → 2020-12-08 10:27 | Outpatient (BNVA) | payer OTHER, SELFPAY | PROVIDERS: PCP Internal Medicine; Visit Provider Student in an Organized Health Care Education/Training Program | DX: I73.00 Raynaud's syndrome without gangrene (principal); R76.8 Other specified abnormal immunological findings in serum; R76.0 Raised antibody titer; R79.89 Other specified abnormal findings of blood chemistry | CPT/HCPCS: 99212 ==

== ENCOUNTER 2021-01-08 09:05 | Outpatient (REF) | payer OTHER, SELFPAY ==
[2021-01-08 11:47] LABS: Glucose Urine UA NEG (NEG); Leukocyte Esterase Urine NEG (NEG); Nitrite Urine NEG (NEG); Specific Gravity - Urine 1.015 (1.005-1.025); Urine Blood NEG (NEG); Urine Ketones NEG (NEG); Urine Protein NEG (NEG-TRACE)
[2021-01-08 11:49] LABS: Appearance Urine CLEAR; Color Urine YELLOW
[2021-01-08 11:52] LABS: MANUAL DIFF FLAG NO
[2021-01-08 12:01] LABS: Bacteria Urine TRACE /LPF; RBC Urine 0 /HPF (0); Squamous Epithelial Cell Urine TRACE /LPF; WBC Urine 0-2 /HPF (0-4)
[2021-01-08 12:07] LABS: Basophils Percent Auto 0.4 % (0-2); Eosinophils Absolute Auto 0.5 X10*3/uL (0.0-0.4); Eosinophils Percent Auto 7.2 % (0-4); Hematocrit 38.8 % (37-47); Hemoglobin 12.7 g/dl (12.0-16.0); Imm Gran Abs Auto 0.02 X10*3/uL (0.00-0.03); Imm Gran Pct Auto 0.3 % (0.0-0.4); Lymphocytes Percent Auto 40.7 % (20-40); Mean Corpuscular HGB Conc 32.7 g/dl (31.0-35.0); Mean Corpuscular Hemoglobin 27.9 pg (27.0-33.0); Mean Corpuscular Volume 85.3 fL (80-98); Mean Platelet Volume 9.5 fL (9.4-12.3); Monocytes Absolute Auto 0.3 X10*3/uL (0.1-1.2); Monocytes Percent Auto 4.4 % (2-11); Neutrophils Absolute Auto 3.5 X10*3/uL (2.0-8.3); Platelet Count 402 X10*3/uL (160-400); Red Blood Count 4.55 X10*6/uL (4.20-5.50); Red Cell Distribution Width 13.1 % (11.0-16.0); White Blood Count 7.5 X10*3/uL (4.8-10.8)
[2021-01-08 12:13] LABS: Prothrombin Time 11.3 SEC (10.8-13.0)
[2021-01-08 12:39] LABS: Alanine Aminotransferase 140 U/L (0-31); Albumin Level 4.5 g/dL (3.5-5.0); Alkaline Phosphatase 159 U/L (39-117); Anion Gap 15 (12-20); Aspartate Amino Transferase 117 U/L (5-31); Bilirubin Total 0.4 mg/dL (0.0-1.0); Blood Urea Nitrogen 12 mg/dL (9-16); C Reactive Protein 0.81 mg/dL (< or = 0.50); Calcium 10.1 mg/dL (8.4-10.2); Carbon Dioxide 23 mmol/L (22-29); Chloride 103 mmol/L (96-108); Estimated Glomerular Filt Rate > 60; Glucose Random 90 mg/dL (60-115); Potassium 4.3 mmol/L (3.3-5.1); Sodium 137 mmol/L (135-145)
[2021-01-08 13:00] LABS: Ferritin 79 ng/mL (10-122)
[2021-01-08 13:16] LABS: Erythrocyte Sedimentation Rate 19 MM/HR (0-20)
[2021-01-08 13:45] LABS: Folate > 20.0 ng/mL (> or = 4.0); Vitamin B12 961 pg/mL (200-900)
[2021-01-09 08:21] LABS: Hepatitis B Surface Antigen Negative (Negative); ~HepC Num1 0.17 S/CO (0.00-0.79); ~Hepatitis C Antibody Nonreactive (Nonreactive)
[2021-01-09 09:04] LABS: HBS Num1 6.14 mIU/mL (0-7.99); HBc Num1 0.12 S/CO (0.00-0.79); Hepatitis B Core Antibody Nonreactive (Nonreactive); ~Hepatitis B Surface Antibody NONREACTIVE (Nonreactive)
[2021-01-09 11:37] LABS: Anti DNA DS Antibody 2 IU/mL
[2021-01-09 12:02] LABS: Complement C3 125 mg/dL (83-193)
[2021-01-09 13:17] LABS: Transglutaminase Ab IgG 2 U/mL; Transglutaminase IgA 1 U/mL
[2021-01-09 13:42] LABS: Beta-2 Microglobulin, Serum 2.07 mg/L (< OR = 2.51)
[2021-01-09 14:01] LABS: PTT (LAC) Screen 31 sec (< OR = 40)
[2021-01-09 15:41] LABS: IgA 226 mg/dL (47-310); IgG 1347 mg/dL (600-1640); IgM 166 mg/dL (50-300)
[2021-01-10 08:25] LABS: ~Hepatitis A Antibody IgM Nonreactive (Nonreactive)
[2021-01-10 10:01] LABS: Mitochondrial Antibodies NEGATIVE (NEGATIVE)
[2021-01-10 13:21] LABS: Alpha 1 Anti-trypsin 168 mg/dL (83-199); Ceruloplasmin 34 mg/dL (18-53)
[2021-01-10 15:46] LABS: Zinc 99 mcg/dL (60-130)
[2021-01-10 21:47] LABS: Cardiolipin IgG Ab <14 GPL; Cardiolipin IgM Ab 16 MPL
[2021-01-12 01:51] LABS: Aldolase 13.6 U/L (<=8.1)
[2021-01-12 23:52] LABS: Smooth Muscle Antibody 21 U (<20)
[2021-01-14 09:51] LABS: Soluble Liver Ag Autoantibody <20.1 U (0.0-20.0)
[2021-01-16 20:31] LABS: Histamine Plasma <1.5 ng/mL (< OR = 1.8)
== END 2021-01-08 09:06 | disposition home or self-care (01) ==
LOC: HO.LAB 09:05
PROVIDERS: Student in an Organized Health Care Education/Training Program; PCP Internal Medicine; Visit Provider Internal Medicine Gastroenterology
DX: R10.33 Periumbilical pain (principal); G89.29 Other chronic pain; K75.81 Nonalcoholic steatohepatitis (NASH); R76.8 Other specified abnormal immunological findings in serum; R74.8 Abnormal levels of other serum enzymes; K59.09 Other constipation
CPT/HCPCS: 36415; 80053; 81001; 82085; 82103; 82232; 82390; 82550; 82607; 82728; 82746; 82784; 83088; 83516; 83520; 84630; 85025; 85597; 85610; 85613; 85652; 85730; 86003; 86140; 86147; 86160; 86225; 86255; 86256; 86704; 86706; 86709; 86803; 87340; 99212

== ENCOUNTER 2021-02-01 14:07 | Outpatient (REF) | payer OTHER, SELFPAY ==
--- NOTE | ~2021-02-01 | XR_ITS ---
EXAMINATION: XR KNEE, LEFT CLINICAL INFORMATION: Pain. COMPARISON: None TECHNIQUE: Four views of the left knee. FINDINGS: Bones and soft tissues are normal. No fracture or joint effusion. Alignment is anatomic. Joint spaces are well maintained. No abnormal soft tissue calcification. XR/XR knee LT 4V IMPRESSION: Unremarkable examination.
== END 2021-02-01 14:08 | disposition home or self-care (01) ==
LOC: HO.XRAY 14:07
PROVIDERS: PCP Internal Medicine; Visit Provider Internal Medicine
DX: M25.562 Pain in left knee (principal)
CPT/HCPCS: 73564

== ENCOUNTER 2021-02-07 09:25 | Day surgery (SDC) | payer OTHER, SELFPAY ==
[2021-01-31 16:00] VITALS: BMI 29.5
--- NOTE | 2021-02-06 11:03 | P.CONAN_ITS ---
Documented by User: Jelena Fleming 02/06/21 11:03 HPI - Anesthesia Eval Consult details Narrative: 30yo F for Upper Endoscopy and Colonoscopy PMF Active Problems Active Problems: All Active Problems (Updated 02/01/21 @ 13:45 by Gucci Hurtado MD) Knee pain (Acute) Anti-cardiolipin antibody positive (Acute) BRIGIDO positive (Acute) Elevated liver enzymes (Acute) Chronic constipation (Acute) Dysmenorrhea, unspecified (Acute) Raynaud disease (Acute) Raynaud disease (Acute) Well woman exam with routine gynecological exam (Acute) Potential exposure to STD (Acute) Ovarian mass (Acute) Past Medical History Medical History Chronic constipation Elevated C-reactive protein (CRP) Elevated LFTs Intussusception intestine Raynaud disease Tobacco use Family History Family History Maternal Grandmother Diabetes mellitus Stroke Asthma Hypotension Maternal Grandfather Diabetes mellitus Paternal Grandmother Diabetes mellitus Alzheimer disease Paternal Grandfather Diabetes mellitus Stroke Colon cancer Father No problems noted. Mother No problems noted. 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 a primary district manager primary care sales to a significant other at home: No Alcohol intake: former Cigarettes Per Day: 4 Are you DNR?: No Advance Directives: No Advance Directives Information Provided: No Advance Directives on File: No Recently lost weight without trying: No Eating poorly because of decreased appetite: No Nutrition Risks: No Nutritional Risk Current occupational status: unemployed Current occupation: rt handed Meds Allergies Allergy/AdvReac Type Severity Reaction Status Date / Time peach Allergy Severe blisters,it Verified 02/07/21 08:35 nato Exam Exam Date and Time: February 06, 2021 1103 Height,Weight and Vital Signs: Height 5 ft 4 in Weight 78.018 kg Assessment and Plan Assessment Anesthesia Assessment: Chart Reviewed Documented by User: Juliana Sandy 02/07/21 10:15 PMFSH Past Medical History Medical History Chronic constipation Elevated C-reactive protein (CRP) Elevated LFTs Intussusception intestine Raynaud disease Tobacco use Family History Family History Maternal Grandmother Diabetes mellitus Stroke Asthma Hypotension Maternal Grandfather Diabetes mellitus Paternal Grandmother Diabetes mellitus Alzheimer disease Paternal Grandfather Diabetes mellitus Stroke Colon cancer Father No problems noted. Mother No problems noted. 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 a primary district manager primary care sales to a significant other at home: No Alcohol intake: former Cigarettes Per Day: 4 Are you DNR?: No Advance Directives: No Advance Directives Information Provided: No Advance Directives on File: No Recently lost weight without trying: No Eating poorly because of decreased appetite: No Nutrition Risks: No Nutritional Risk Current occupational status: unemployed Current occupation: rt handed Meds Allergies Allergy/AdvReac Type Severity Reaction Status Date / Time peach Allergy Severe blisters,it Verified 02/07/21 08:35 nato Exam Airway Mallampati Class: II TM Dist: >3cm Neck ROM: Full Heart: RRR Lungs: CTA Assessment and Plan Assessment Anesthesia Assessment: Anesthesia Plan Discussed and Chart Reviewed Final Anesthetic Review NPO: Yes ASA Class: III Final Preanesthetic Review: No Changes in Pt Med Stat and Consent Obtained/Reviewed Patient Risk: Intermediate Procedure Risk: Intermediate Anesthetic Plan Anesthetic Plan: MAC: Disposition: Standard PACU
--- NOTE | 2021-02-07 09:47 | MHC.SHP ---
Pre-Procedural Eval Section B Chief Complaint: constipation Relevant Family History (Specify if Yes): No Relevant Social History: Tobacco Use Present Medications: see Short Stay Collaborative assessment Medical History: Significant History (Chronic constipation Elevated C-reactive protein (CRP) Elevated LFTs Intussusception intestine Raynaud disease Tobacco use) History of Previous Operations: Relevant previous surgery/procedure and date(s) (appendectomy) Allergies: Allergies Allergy/AdvReac Type Severity Reaction Status Date / Time peach Allergy Severe blisters,it Verified 02/07/21 08:35 nato Review of Systems Sugical H&P ROS: Negative: Constitution, Cardiovascular, Respiratory, Neurological, Psychiatric, Hem-Onc, Allergic/Immunologic, Gastrointestinal, Genitourinary, Musculoskeletal, Integumentary, Endocrine and Eyes/Ears/Nose/Throat Exam Surgical H&P Exam: Normal: HEENT, Normal: Heart, Normal: Lungs, Normal: Extremities, Normal: Abdomen, Normal: Skin and Normal: Neurological Plan Diagnosis/Plan: Unchanged I have reviewed the history and physical and performed a pertinent physical examination on my patient. No changes have occurred unless specified.
[2021-02-07 09:49] VITALS: BP 118/76; PULSE 89; RESP 16; TEMP 36.1; O2SAT 100
[2021-02-07] MEDS: Sodium Phosphate,Mono-Dibasic 133 ML ENEMA PR (09:59)
--- NOTE | 2021-02-07 10:01 | P.BOP_ITS ---
Brief Operative Note Date of Service: 02/07/21 Pre-op diagnosis: altered bowel habit Post-op diagnosis: same Procedure: see op note Surgeon: Abhinav Cortes MD Anesthesia: MAC Was an Casting Repairer used for this Procedure?: No Estimated blood loss (mL): 0 Condition: stable Disposition: PACU
[2021-02-07 10:03] LABS: UPreg QC Valid YES; Urine Pregnancy NEGATIVE (NEGATIVE)
[2021-02-07] MEDS: Lactated Ringers 1,000 ML 100 ML IVCONT (10:19)
--- NOTE | 2021-02-07 10:19 | PC.NURSE ---
Patient stated she finished colonoscopy prep completely and output was dark brown liquid with small solids. Dr. Cortes notified. Multiple bowel movements during intake. This nurse observed output, brown with very small solids present. Enema given, tolerated well. Output following administration was light brown with no solids present. Dr. Cortes aware.
--- NOTE | 2021-02-07 10:36 | W.PM.OPN ---
Operative Note Operative Note Date of Service: 02/07/21 Narrative: Operative Information Procedure Description: EGD, Colonoscopy FLEXIBLE TRANSORAL UPPER GASTROINTESTINAL ENDOSCOPY AND COLONOSCOPY PROCEDURE NOTE UPPER ENDOSCOPY Consent: Indications for the procedure and potential complications of bleeding, perforation, reaction to medications and missed diagnosis were discussed with the patient and informed consent was obtained. Instrument: Olympus GIF H 190 J mid size upper endoscope Monitoring: Vital signs and clinical assessment, continuous EKG monitoring, Pulse oximetry, Carbon Dioxide monitoring and blood pressure monitoring were done throughout the procedure. Procedure: The patient was placed in the left lateral decubitis position and pre-procedure medications were administered and a bite block was placed. The endoscope was inserted into the mouth and advanced under direct vision to the third part of duodenum. A careful inspection was made as the upper endoscope was withdrawn including a retroflexed examination of the proximal stomach; Findings and interventions are described below. Findings: Larynx:normal Esophagus: GE junction at 33 cm, diaphragm hiatus at 35 cm, consistent with 2 cm sliding hiatal hernia-rando esophagus bx taken, mild esophagitis noted Stomach:Patchy erythema with atrophy and scarring. Biopsies were obtained. Grade 2 flap valve on retroflexed examination of the cardia. Duodenum: Normal bulb and descending duodenum, bx taken Intervention: Biopsies as noted above COLONOSCOPY Instrument: Olympus variable stiffness pediatric scope 190L Colonoscopy Monitoring: Vital signs and clinical assessment, continuous EKG monitoring, Pulse oximetry, Carbon Dioxide monitoring and blood pressure monitoring were done throughout the procedure. Colon withdrawal time was 17 minutes. Procedure: The patient was placed in the left lateral decubitis position and pre-procedure medications were administered. After a digital rectal examination of the ano-rectum, the video colonoscope was inserted into the rectum and advanced through the colon to the cecum/TI. The colonoscope was slowly withdrawn in a retrograde panoramic fashion and the colon mucosa was carefully examined including a retroflexed view of the rectum. Findings and interventions are described below. Procedure Difficulty: moderate, pressure applied to reach cecum Findings: Terminal Ileum-normal, bx taken random colon bx taken Cecum:normal Ascending Colon: normal Transverse Colon -normal Descending Colon:normal Sigmoid Colon: normal Rectum: Retroflexion with small internal hemorrhoids, grade I Anorectum - normal Colon preparation: [place] Bowel Preparation Scale Right colon; 2 Transverse colon: 2 Left colon; 1 (0 = Unprepared colon segment with mucosa not seen due to solid stool that cannot be cleared. 1 = Portion of mucosa of the colon segment seen, but other areas of the colon segment not well seen due to staining, residual stool and/or opaque liquid. 2 = Minor amount of residual staining, small fragments of stool and/or opaque liquid, but mucosa of colon segment seen well. 3 = Entire mucosa of colon segment seen well with no residual staining, small fragments of stool or opaque liquid) Impression and Post Procedure Diagnosis: Endoscopy Findings: gastritis hiatal hernia Colonoscopy Findings: internal hemorrhoids Plan: Await Pathology results Repeat Colonoscopy aged 45 years or earlier if clinically indicated High fiber diet leaflet avoid straining at stool, epsom salts and sitz bath, anusol supps or cream as needed Above findings were reviewed with the patient and relevant handouts were provided if indicated.
[2021-02-07 11:16] VITALS: BP 103/52; PULSE 102; RESP 16; TEMP 36.2; O2SAT 98
[2021-02-07 11:31] VITALS: BP 108/60; PULSE 77; RESP 16; O2SAT 100
[2021-02-07 11:46] VITALS: BP 103/65; PULSE 72; RESP 18; O2SAT 100
[2021-02-07] MEDS: ondansetron HCL 4 MG/2 ML VIAL IVPUSH (11:54)
[2021-02-07 12:01] VITALS: BP 108/69; PULSE 68; RESP 18; TEMP 36.3; O2SAT 100
== END 2021-02-07 12:45 | disposition home or self-care (01) ==
PROVIDERS: Nurse Practitioner; PCP Internal Medicine; Visit Provider Internal Medicine Gastroenterology
PROC: (CPT 45380; principal; 2021-02-07 11:00)
DX: K59.09 Other constipation (principal); K56.1 Intussusception; K64.0 First degree hemorrhoids; K29.50 Unspecified chronic gastritis without bleeding; K20.80 Other esophagitis without bleeding; K44.9 Diaphragmatic hernia without obstruction or gangrene; I73.00 Raynaud's syndrome without gangrene; R79.82 Elevated C-reactive protein (CRP); R94.5 Abnormal results of liver function studies; F17.210 Nicotine dependence, cigarettes, uncomplicated; Z79.899 Other long term (current) drug therapy; M22.02 Recurrent dislocation of patella, left knee; M25.562 Pain in left knee
CPT/HCPCS: 45380; 43239; 81025; 88305; 88313; 88341; 88342; 99202; J2405

== ENCOUNTER 2021-02-16 07:39 | Day surgery (SDC) | payer OTHER, SELFPAY ==
[2021-02-16] VITALS (7 sets, daily range): BP systolic 98–120; BP diastolic 44–74; PULSE 80–98; RESP 16–18; TEMP 36.3–36.6; O2SAT 95–99; BMI 28.8
--- NOTE | ~2021-02-16 | US_ITS ---
PROCEDURE: ULTRASOUND-GUIDED LIVER BIOPSY CLINICAL INFORMATION: Abnormal liver function tests and elevated enzymes. COMPARISON: Ultrasound abdomen limited 10/03/2020. TECHNIQUE: Following explaining ultrasound-guided percutaneous liver biopsy procedure, benefits and risk, a written consent was obtained. Patient was placed supine on ultrasound stretcher and preliminary ultrasound imaging was obtained. An optimal site was selected along the right abdomen intercostal space and marked. The marked site was cleaned and draped in the usual sterile manner. 1% lidocaine was injected at puncture site. Through a small incision a guide needle was advanced from the skin, subcutaneous tissue in the right hepatic lobe under sterile ultrasound guidance. Coaxially a 20-gauge biopsy gun was advanced and a 2-pass core tissue was obtained. Postprocedure the guide needle was withdrawn and complete hemostasis achieved. Repeat ultrasound imaging revealed no hemorrhage. A sterile dressing was applied at the puncture site. Conscious sedation was performed during exam. Patient tolerated procedure extremely well. FINDINGS: On preliminary ultrasound imaging the liver is echogenic. Ultrasound-guided right hepatic lobe core biopsy performed. Fluid collected was sent to the lab in formaldehyde for further investigation. US/US biopsy liver IMPRESSION: Successful ultrasound-guided right hepatic lobe core biopsy performed without immediate complications.
[2021-02-16 08:20] LABS: UPreg QC Valid YES; Urine Pregnancy NEGATIVE (NEGATIVE)
[2021-02-16 08:25] LABS: MANUAL DIFF FLAG NO
[2021-02-16 08:28] LABS: Basophils Absolute Auto 0.1 X10*3/uL (0.0-0.2); Basophils Percent Auto 0.3 % (0-2); Eosinophils Absolute Auto 1.1 X10*3/uL (0.0-0.4); Eosinophils Percent Auto 7.3 % (0-4); Hematocrit 38.1 % (37-47); Hemoglobin 12.4 g/dl (12.0-16.0); Imm Gran Abs Auto 0.05 X10*3/uL (0.00-0.03); Imm Gran Pct Auto 0.3 % (0.0-0.4); Lymphocytes Absolute Auto 2.9 X10*3/uL (1.2-4.9); Mean Corpuscular HGB Conc 32.5 g/dl (31.0-35.0); Mean Corpuscular Hemoglobin 27.1 pg (27.0-33.0); Mean Corpuscular Volume 83.4 fL (80-98); Mean Platelet Volume 8.8 fL (9.4-12.3); Monocytes Absolute Auto 0.6 X10*3/uL (0.1-1.2); Monocytes Percent Auto 4.2 % (2-11); Neutrophils Absolute Auto 9.8 X10*3/uL (2.0-8.3); Neutrophils Percent Auto 67.9 % (45-73); Platelet Count 423 X10*3/uL (160-400); Red Blood Count 4.57 X10*6/uL (4.20-5.50); Red Cell Distribution Width 12.8 % (11.0-16.0); White Blood Count 14.4 X10*3/uL (4.8-10.8)
[2021-02-16 08:41] LABS: Prothrombin Time 11.8 SEC (10.8-13.0)
[2021-02-16 08:44] LABS: Partial Thromboplastin Time 35.4 SEC (24.1-38.0)
[2021-02-16] MEDS: Lidocaine HCl 1 % MPF 5 ML VIAL SUBCUT (09:59)
== END 2021-02-16 12:12 | disposition home or self-care (01) ==
PROVIDERS: Radiology Diagnostic Radiology; PCP Internal Medicine; Visit Provider Radiology Diagnostic Radiology
DX: R74.8 Abnormal levels of other serum enzymes (principal); R76.8 Other specified abnormal immunological findings in serum; R79.82 Elevated C-reactive protein (CRP); K76.0 Fatty (change of) liver, not elsewhere classified; K59.09 Other constipation; K56.1 Intussusception; I73.00 Raynaud's syndrome without gangrene; F17.210 Nicotine dependence, cigarettes, uncomplicated
CPT/HCPCS: 36415; 47000; 76942; 81025; 85025; 85610; 85730; 88307; 88313; 99152; J2250; J3010

== ENCOUNTER → 2021-02-23 09:47 | Outpatient (BNVA) | payer OTHER, SELFPAY | PROVIDERS: PCP Internal Medicine; Visit Provider Internal Medicine Gastroenterology | DX: R74.8 Abnormal levels of other serum enzymes (principal); N94.6 Dysmenorrhea, unspecified | CPT/HCPCS: 99212 ==

== ENCOUNTER 2021-03-15 12:28 | Outpatient (REF) | payer OTHER, SELFPAY ==
[2021-03-15 14:12] LABS: C Reactive Protein 1.72 mg/dL (< or = 0.50)
[2021-03-15 15:00] LABS: Erythrocyte Sedimentation Rate 18 MM/HR (0-20)
[2021-03-20 22:52] LABS: Aldolase 9.1 U/L (<=8.1)
[2021-03-25 23:06] LABS: EJ Autoantibodies NOT DETECTED (NOT DETECTED); JO-1 Antibody <1.0 NEG AI (<1.0 NEG); MI 2 Autoantibodies NOT DETECTED (NOT DETECTED); OJ Autoantibodies NOT DETECTED (NOT DETECTED); PL 12 Autoantibodies NOT DETECTED (NOT DETECTED); PL 7 Autoantibodies NOT DETECTED (NOT DETECTED)
== END 2021-03-15 12:29 | disposition home or self-care (01) ==
LOC: HO.LAB 12:28
PROVIDERS: Absent Provider Internal Medicine; PCP Internal Medicine; Visit Provider Student in an Organized Health Care Education/Training Program
DX: I73.00 Raynaud's syndrome without gangrene (principal); R76.8 Other specified abnormal immunological findings in serum; R79.89 Other specified abnormal findings of blood chemistry; R06.00 Dyspnea, unspecified; Z79.899 Other long term (current) drug therapy
CPT/HCPCS: 36415; 82085; 82550; 83520; 85652; 86140; 99212

== ENCOUNTER 2021-03-16 16:00 | Outpatient (REF) | payer OTHER, SELFPAY ==
--- NOTE | ~2021-03-16 | XR_ITS ---
EXAMINATION: XR LUMBOSACRAL SPINE CLINICAL INFORMATION: Low back pain COMPARISON: None TECHNIQUE: Three views of the lumbosacral spine. FINDINGS: The vertebral bodies and posterior elements are normal. The disc spaces are preserved and the vertebral alignment is normal. The paraspinal soft tissues are normal. XR/XR lumbar spine 2-3V IMPRESSION: Unremarkable examination.
== END 2021-03-16 16:01 | disposition home or self-care (01) ==
LOC: HO.XRAY 16:00
PROVIDERS: PCP Internal Medicine; Visit Provider Internal Medicine
DX: M54.5 Low back pain (principal)
CPT/HCPCS: 72100

== ENCOUNTER 2021-03-20 14:35 | Outpatient (REF) | payer OTHER, SELFPAY ==
[2021-03-21 12:35] LABS: CT PCR NOT DETECTED (Not Detect.); NG PCR NOT DETECTED (Not Detect.)
== END 2021-03-20 14:36 | disposition home or self-care (01) ==
LOC: HO.LAB 14:35
PROVIDERS: PCP Internal Medicine; Visit Provider Obstetrics & Gynecology
DX: Z11.3 Encounter for screening for infections with a predominantly sexual mode of transmission (principal); N94.6 Dysmenorrhea, unspecified; M79.7 Fibromyalgia
CPT/HCPCS: 87491; 87591; 99212

== ENCOUNTER 2021-03-22 11:19 | Outpatient (REF) | payer OTHER, SELFPAY ==
--- NOTE | 2021-03-22 17:50 | PFT_ITS ---
INDICATION: Dyspnea. SPIROMETRY: The FEV1 to FVC 90% with an FEV1 of 3.85 L, which is 121% predicted, FVC of 4.26 L. which is 113% predicted. No significant response to bronchodilators noted. Maximum voluntary ventilation 132% predicted. LUNG VOLUMES: Total lung capacity 102% predicted. DIFFUSION CAPACITY: DLCO 77% predicted. COMPARISONS: None. INTERPRETATION: No obstructive nor restrictive ventilatory defects have been identified. No significant response to bronchodilators noted. Normal maximum voluntary ventilation. Lung volumes are within normal limits and diffusion capacity, the patient does have a mild isolated diffusion impairment. Need to correct for hemoglobin. Need to consider occult interstitial lung conditions and/or pulmonary vascular disease otherwise. Clinical correlation warranted. Federico Branham MD MR/MODL / [id number]
== END 2021-03-22 11:20 | disposition home or self-care (01) ==
LOC: HO.RESP 11:19
PROVIDERS: PCP Internal Medicine; Visit Provider Student in an Organized Health Care Education/Training Program
DX: R06.00 Dyspnea, unspecified (principal)
CPT/HCPCS: 94060; 94727; 94729

== ENCOUNTER → 2021-04-12 13:31 | Outpatient (BNVA) | payer OTHER, SELFPAY | PROVIDERS: PCP Internal Medicine; Visit Provider Internal Medicine Pulmonary Disease | DX: R06.00 Dyspnea, unspecified (principal); J84.9 Interstitial pulmonary disease, unspecified | CPT/HCPCS: 99202 ==

== ENCOUNTER → 2021-04-25 09:37 | Outpatient (REF) | payer OTHER, SELFPAY ==
--- NOTE | 2021-04-25 09:39 | CA_ITS ---
Transthoracic Echocardiogram Patient (Last, First, Middle): Alaina Lucio, Gender: Female Date of : 1990 Age: 30 Procedure Date: 04/25/2021 Procedure Type: Transthoracic Echocardiogram Location: OP Height: 162.56 cm Weight: 86.18 kg BSA: 1.91 m2 Heart Rate: bpm BP: 120 / 75 mmHg Technical Information Specialist: INDIO/MARCIN Referring MD: Gerry Koch MD Novelty Twister Operator: Maurilio Mendes MD Symptoms: R06.00 - Dyspnea, unspecified Study Quality: Fair ECG Rhythm: Sinus Conclusions: - Normal study Findings Left Ventricle Normal left ventricular size, thickness, and systolic function. The visually estimated ejection fraction is between 60-65%. Spectral Doppler is indicative of a normal filling pattern. Right Ventricle Normal right ventricular cavity size and systolic function. Atria Both atria are normal in size. There is no evidence of interatrial shunt. Aortic Valve Normal aortic valve structure and function. There is no aortic valve stenosis. There is no aortic valve regurgitation. Mitral Valve Normal mitral valve structure and function. There is trace mitral valve regurgitation. There is no mitral valve stenosis. Pulmonic Valve The pulmonic valve is likely normal. There is trace pulmonic valve regurgitation. Tricuspid Valve Normal tricuspid valve structure. The right ventricular systolic pressure is 22 mmHg. There is no evidence of pulmonary hypertension. Great Vessels All visible segments of the aorta are normal in size. The pulmonary artery was not well visualized. Venous The inferior vena cava is normal in size and collapses greater than 50% with inspiration. Pericardium/Pleural There is no evidence of pericardial effusion. Prior Study Comparison No prior study available for comparison. Measurements 2D Linear Measurements IVSd: 0.62 0.6-0.9/0.6-1.0 cm LVIDd: 5.00 3.9-5.3/4.2-5.9 cm LVIDd Index: 2.62 2.4-3.2/2.2-3.1 cm/m2 LVIDs: 3.27 2.0-3.6 cm LVPWd: 0.64 0.7-1.1 cm Ao Root: 2.90 2.1-3.5 cm LA Diam: 3.30 2.7-3.8/3.0-4.0 cm LAIDs Index: 1.73 1.5-2.3 cm/m2 LV Mass: 125.25 67-162/88-224 g LV Mass Index: 65.58 43-95/49-115 g/m2 LVOT Diam: 2.00 3.0+(-)1.3 cm 2D Systolic Function EF 4C: 60.00 >55% EF 2C: 63.40 >55% EF BiP: 61.40 >55% Mitral Valve MV Pk E: 0.62 MV PK A: 0.53 MV Decel Time: 236.00 E/A: 1.20 E'Lateral: 10.80 E'Medial: 10.60 E/E' Med: 5.90 E/E' Lat: 5.80 PHT: 69.00 MVA PHT: 3.19 Decel [place]: 2.65 Aortic Valve AoV Pk Abad: 1.38 AoV Mn Abad: 1.06 AoV VTI: 0.28 AoV Pk Grad: 8.00 Aov Mn Grad: 5.00 JEREMY Cont.VTI: 1.99 LVOT LVOT Pk Abad: 0.91 LVOT Mn Abad: 0.64 LVOT VTI: 0.18 LVOT Pk Grad: 3.00 LVOT Mn Grad: 2.00 LVOT Diam: 2.00 LVOT Area: 3.14 Diastolic Function MV Pk E: 0.62 MV Pk A: 0.53 E/A: 1.20 E'Medial: 10.60 E/E' Med: 5.90 E' Laterial: 10.80 E/E' Lat: 5.80 Right Ventricle TAPSE (mm): 2.74 Tricuspid Valve TR Pk Abad: 2.19 TR Pk Grad: 19.00 RA Press: 3.00 RVSP: 22.00 Great Vessels Aorta Ao Root-2D: 2.90 2.0-3.7 cm Ao Asc: 2.60 2.1-3.4 cm Ao Arch: 2.40 Updated in Other Vendor System with Status of Final Maurilio Mendes MD electronically signed on 04/25/2021 4:58:34 PM with status of Final
== END ==
LOC: HO.CARD 09:37
PROVIDERS: Visit Provider Student in an Organized Health Care Education/Training Program
DX: R06.00 Dyspnea, unspecified (principal)
CPT/HCPCS: 93306

== ENCOUNTER 2021-06-07 14:01 | Outpatient (REF) | payer OTHER, SELFPAY ==
[2021-06-07 14:39] LABS: MANUAL DIFF FLAG NO
[2021-06-07 14:42] LABS: Basophils Percent Auto 0.4 % (0-2); Eosinophils Absolute Auto 0.5 X10*3/uL (0.0-0.4); Eosinophils Percent Auto 6.2 % (0-4); Hematocrit 37.1 % (37-47); Hemoglobin 11.9 g/dl (12.0-16.0); Imm Gran Abs Auto 0.02 X10*3/uL (0.00-0.03); Imm Gran Pct Auto 0.3 % (0.0-0.4); Lymphocytes Absolute Auto 2.6 X10*3/uL (1.2-4.9); Lymphocytes Percent Auto 33.2 % (20-40); Mean Corpuscular HGB Conc 32.1 g/dl (31.0-35.0); Mean Corpuscular Hemoglobin 26.3 pg (27.0-33.0); Mean Corpuscular Volume 82.1 fL (80-98); Mean Platelet Volume 8.9 fL (9.4-12.3); Monocytes Absolute Auto 0.8 X10*3/uL (0.1-1.2); Monocytes Percent Auto 9.7 % (2-11); Neutrophils Percent Auto 50.2 % (45-73); Platelet Count 394 X10*3/uL (160-400); Red Blood Count 4.52 X10*6/uL (4.20-5.50); Red Cell Distribution Width 14.4 % (11.0-16.0); White Blood Count 7.9 X10*3/uL (4.8-10.8)
[2021-06-07 15:03] LABS: Alanine Aminotransferase 53 U/L (0-31); Albumin Level 3.9 g/dL (3.5-5.0); Alkaline Phosphatase 141 U/L (39-117); Anion Gap 10 (12-20); Aspartate Amino Transferase 40 U/L (5-31); Bilirubin Total 0.2 mg/dL (0.0-1.0); Blood Urea Nitrogen 11 mg/dL (9-16); Calcium 9.7 mg/dL (8.4-10.2); Carbon Dioxide 28 mmol/L (22-29); Chloride 103 mmol/L (96-108); Estimated Glomerular Filt Rate > 60; Gamma Glutamyl Transpeptidase 96 U/L (7-33); Glucose Random 101 mg/dL (60-115); Potassium 4.2 mmol/L (3.3-5.1); Sodium 137 mmol/L (135-145); Total Protein 7.1 g/dL (6.5-8.0)
[2021-06-07 15:05] LABS: B Type Natriuretic Peptide 18 pg/mL (<100)
[2021-06-07 15:25] LABS: TSH reflex Free T4 1.98 uIU/mL (0.32-4.0)
[2021-06-07 15:37] LABS: Appearance Urine CLEAR; Color Urine YELLOW; Glucose Urine UA NEG (NEG); Leukocyte Esterase Urine NEG (NEG); Nitrite Urine NEG (NEG); Urine Blood NEG (NEG); Urine Ketones NEG (NEG); Urine Protein NEG (NEG-TRACE)
[2021-06-13 04:52] LABS: Aldolase 7.2 U/L (<=8.1)
== END 2021-06-07 14:02 | disposition home or self-care (01) ==
LOC: HO.LAB 14:01
PROVIDERS: Absent Provider Internal Medicine Gastroenterology; Visit Provider Nurse Practitioner Family
DX: R74.8 Abnormal levels of other serum enzymes (principal); K75.81 Nonalcoholic steatohepatitis (NASH); I10 Essential (primary) hypertension; R60.0 Localized edema
CPT/HCPCS: 36415; 80053; 81003; 82085; 82550; 82977; 83880; 84443; 85025

== ENCOUNTER → 2024-05-20 13:46 | Outpatient (RCR) | payer OTHER, SELFPAY ==
[2021-01-30 11:09] VITALS: BP 134/63; PULSE 124; RESP 12; TEMP 37.5; O2SAT 98; BMI 30.5
--- NOTE | 2021-01-30 11:27 | PM.HEMONCCN ---
Subjective - Subjective Chief complaint: Consult for: Positive cardiolipin antibody. Patient: new to practice Consult date: 01/30/21 Requesting Physician: Carlos. Primary Care Provider: franklin Medical Summary: DIAGNOSIS: CARDIOLIPIN ANTIBODY. HPI - Consult Narrative Reason for consult: Consult for: Cardiolipin antibody. Narrative: Alaina Lucio is a pleasant 30 year old lady, who tells me she has had Raynaud's phenomena for several years now. She has been under the care of Rheumatology. She has had an extensive evaluation. Concern was for lupus. Her BRIGIDO was 1:1280, however lupus was not confirmed. As part of the evaluation cardiolipin antibody was checked. On November 23, IgM was 17. January 08 it was 16. ROS: She denies easy fatigability. No fever nor chills. Appetite is good. She has gained weight. She does get frequent headaches. She complains of shortness of breath. Likely related anxiety. She has had stomach pain. Reflux symptoms. She takes omeprazole. She is constipated. She passes stool which looks like golf balls. She has been started on Linzess. Stool has become softer but no diarrhea. She has recently had elevated LFTs. She is being worked up by Dr. Cortes. His notes: I had my breakfast, I am ok right now. As the day goes on I get bloated. I gained 20 lbs in a month because of constipation problems. Stomach pains on the top of my stomach it makes my feel nausea. No bleeding, only blood if I have to push super hard and it rips my butt. Mom states she poops out golf balls. Omeprazole seems to be working, but I take two a day so I'm not sure if there is a higher dosage. Denies dysuria no hematuria. 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 She only spots. She has had lower back pain. Sometimes her feet swell up in the morning. She has anxiety and depression. She has Raynaud's. Review of Systems - Constitutional Reports system reviewed and no additional complaints, except as documented - Eyes Reports system reviewed and no additional complaints, except as documented - ENT Reports system reviewed and no additional complaints, except as documented - Cardiovascular Reports system reviewed and no additional complaints, except as documented - Respiratory Reports no additional respiratory complaints - Gastrointestinal Reports system reviewed and no additional complaints, except as documented - Genitourinary Reports no additional female genitourinary complaints - Musculoskeletal Reports system reviewed and no additional complaints, except as documented - Integumentary/Breasts Skin/Breast: Reports no additional skin complaints - Neurologic Reports system reviewed and no additional complaints, except as documented - Psychiatric Reports system reviewed and no additional complaints, except as documented - Endocrine Reports no additional endocrine complaints - Hematologic/Lymphatic Reports system reviewed and no additional complaints, except as documented - Allergic/Immunologic Reports system reviewed and no additional complaints, except as documented Oncology Screenings - ECOG Performance Status ECOG Performance Status: 0 [facility] Medical History: Medical History (Last Reviewed 02/07/21 @ 08:26 by Candace Griffith) Chronic constipation Elevated C-reactive protein (CRP) Elevated LFTs Intussusception intestine Raynaud disease Tobacco use Functional capacity: independent ambulation Patient : No Family History: Family History (Last Reviewed 02/07/21 @ 08:26 by Candace Griffith) Maternal Grandmother Diabetes mellitus Stroke Asthma Hypotension Maternal Grandfather Diabetes mellitus Paternal Grandmother Diabetes mellitus Alzheimer disease Paternal Grandfather Diabetes mellitus Stroke Colon cancer Father No problems noted. Mother No problems noted. Surgical History: Surgical History (Last Reviewed 02/07/21 @ 08:26 by Candace Griffith) History of appendectomy Social History: Social History (Last Updated 02/07/21 @ 08:36 by Candace Griffith) Living Situation History: Household Members: None Are you a primary critical care physician assistant to a significant other at home: No Alcohol History: Alcohol intake: former Alcohol History Details: Alcohol intake frequency: does not drink Tobacco History: Cigarettes Per Day: 4 Advance Directives: Advance Directives: No Advance Directives Information Provided: Yes Occupation Assessmet: Current occupational status: unemployed Current occupation: rt handed Smoking status: Light tobacco smoker Home Medications and Allergies Allergies Allergy/AdvReac Type Severity Reaction Status Date / Time peach Allergy Severe blisters,it Verified 02/07/21 08:35 nato Physical Exam Vital signs: Vital Signs Temp 99.5 F 01/30/21 11:09 Pulse 124 H 01/30/21 11:09 Resp 12 01/30/21 11:09 BP 134/63 01/30/21 11:09 Pulse Ox 98 01/30/21 11:09 Intake & Output 01/29/21 01/30/21 01/30/21 18:59 06:59 18:59 Other: Weight 80.7 kg Weight in Grams [id number] Weight 80.7 kg - Constitutional Present: no acute distress - Routine HEENT Exam Head: Present: normal inspection ENT: Present: mucous membranes moist - Routine Neck Exam Present: supple - Routine Respiratory Exam Present: CTAB - Routine Cardiovascular Exam Cardiovascular: Present: RRR, S1, S2 - Routine Rectal Exam Patient deferred: digital exam - Routine Skin Exam Present: intact - Routine Neurological Exam Present: alert, oriented X3 - Detailed Neurological Exam: Coma Scale Eye Opening: Spontaneous (4) Verbal Response: Oriented (5) Motor Response: Obeys commands (6) [place] Coma Scale Total: 15 - Routine Psychiatric Exam Present: normal affect Assessment and Plan (1) Anti-cardiolipin antibody positive Status: Acute This is a pleasant 30-year-old lady with a history of Raynaud's phenomena. She was being worked up for SLE. IgM Cardiolipin antibody was checked and came back slightly high. It was 17 and then repeat on January 09 was 16. (13-20 being in the indeterminate range.) (21-80 is low positive, above 80 is high positive.) At this level it is only borderline elevation. I doubt that this is clinically significant. She was reassured of that. PLAN: I will wait 12 weeks and repeat the level and follow the trend. If it goes above 80, will recommend prophylactic aspirin. Lupus anticoagulant is negative. She will return in a couple months for a follow-up visit. All her, her mom's and boyfriend's questions were answered to the satisfaction. Thank you, CC: Dr. Gonzalez. Dr. Cortes. Dr. Hurtado.
--- NOTE | 2021-01-30 12:09 | MHC.HEMONCMA ---
Pt presents for consult on raised antibody titer. History reviewed and pt to return in 2 months.
== END | disposition home or self-care (01) ==
LOC: HO.ONC 01-30 10:55
PROVIDERS: Visit Provider Internal Medicine Medical Oncology
DX: R76.0 Raised antibody titer (principal)
CPT/HCPCS: 99204